=== PATIENT | male | born 1990 | race Two or more races ===

== ENCOUNTER 2024-03-24 02:18 | Emergency (ER) | payer SELFPAY ==
--- NOTE | ~2024-03-24 | CT_ITS ---
CLINICAL HISTORY: LLQ abdo pain, Hx of sigmoidectomy CT abdomen and pelvis with contrast Comparison: CT - CT ABDOMEN PELVIS W IV CON - 03/24/24 05:08 EST Findings: No consolidation or effusion. The gallbladder and solid organs are within normal limits. No renal stones. There are postoperative changes related to the sigmoid colon which is moderately distended with gas. Liquid stool is seen within the colon suggesting diarrhea. The prostate is enlarged. Small amount of radiodense material is seen within the urinary bladder. Findings may represent blood products. The bladder is otherwise unremarkable. The bones are intact. IMPRESSION: 1. Small amount of radiodense material is seen within the urinary bladder likely representing a small amount of excreted contrast. Blood products not excluded. Please correlate clinically. 2. Postoperative changes sigmoid. The sigmoid is moderately distended. 3. Liquid stool suggests diarrhea. This document has been electronically signed by: Srikanth Mendes MD on 03/24/2024 06:54:23
[2024-03-24 02:22] VITALS: BP 118/77; PULSE 80; RESP 16; TEMP 36.8; O2SAT 96; BMI 35.4
--- NOTE | 2024-03-24 02:57 | MHC.EDTECH ---
Patient brought into triage area,labs and urine obtained and sent to lab
[2024-03-24 03:03] LABS: MANUAL DIFF FLAG NO
[2024-03-24 03:04] LABS: Basophils Percent Auto 0.5 % (0-2); Eosinophils Absolute Auto 0.1 X10*3/uL (0.0-0.4); Eosinophils Percent Auto 1.5 % (0-4); Hematocrit 42.8 % (42.0-52.0); Hemoglobin 14.2 g/dl (14.0-18.0); Imm Gran Abs Auto 0.03 X10*3/uL (0.00-0.03); Imm Gran Pct Auto 0.4 % (0.0-0.4); Lymphocytes Absolute Auto 2.8 X10*3/uL (1.2-4.9); Lymphocytes Percent Auto 35.3 % (20-40); Mean Corpuscular HGB Conc 33.2 g/dl (31.0-36.0); Mean Corpuscular Hemoglobin 24.2 pg (27.0-33.0); Mean Platelet Volume 9.7 fL (9.4-12.4); Monocytes Absolute Auto 0.6 X10*3/uL (0.1-1.2); Monocytes Percent Auto 7.3 % (2-11); Neutrophils Absolute Auto 4.4 x10*3/uL (2.0-8.3); Platelet Count 300 X10*3/uL (160-400); Red Blood Count 5.86 X10*6/uL (4.60-5.80); White Blood Count 7.9 X10*3/uL (4.8-10.8)
[2024-03-24 03:08] LABS: Appearance Urine Clear; Color Urine Yellow; Glucose Urine UA Negative (Negative); Leukocyte Esterase Urine Small (1+) (Negative); Nitrite Urine Negative (Negative); PH 5.5 (5.0-9.0); Specific Gravity - Urine >= 1.030 (1.005-1.025); UMIC TRIGGER UACC YES; Urine Blood Negative (Negative); Urine Ketones Negative (Negative); Urine Protein Negative (Neg-Trace)
[2024-03-24 03:16] LABS: Anion Gap 14 (12-20); Blood Urea Nitrogen 17 mg/dL (9-16); Calcium 8.7 mg/dL (8.4-10.2); Carbon Dioxide 19 mmol/L (22-29); Chloride 108 mmol/L (96-108); Creatinine Clr Calc Pharmacy 161.9; Estimated Glomerular Filt Rate > 60; Glucose Random 97 mg/dL (60-115); Potassium 3.8 mmol/L (3.3-5.1); Sodium 137 mmol/L (135-145)
[2024-03-24 03:37] LABS: Alanine Aminotransferase 16 U/L (0-40); Aspartate Amino Transferase 20 U/L (5-37); Bilirubin Direct 0.1 mg/dL (0.0-0.5); Bilirubin Total 0.4 mg/dL (0.0-1.0); Lipase 22 U/L (8-78); Total Protein 7.5 g/dL (6.5-8.0)
[2024-03-24 03:45] LABS: Bacteria Urine None Seen (None Seen); Hyaline Casts Urine 0-2 /LPF (0-2); RBC Urine 0-2 /HPF (0-2); Squamous Epithelial Cell Urine 0-2 /HPF (0-2); UACC Culture Trigger YES; WBC Urine 0-5 /HPF (0-5)
[2024-03-24 04:05] LABS: Alkaline Phosphatase 51 U/L (39-117)
--- NOTE | 2024-03-24 04:29 | ED_ITS ---
HPI - General Adult General Chief complaint: Abdominal Pain Stated complaint: Stomach Pain Time Seen by Provider: 03/24/24 04:29 History of Present Illness ED Provider: Parvez ESPINOZA narrative: The patient is a 34-year-old male who presents to the emergency room with a 1 day history of abdominal pain. He has had associated nausea but no vomiting. He has had associated diarrhea. He has also has a headache. He feels the pain primarily in the left lower quadrant. 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 He had a large section of sigmoid colon removed. Related Data Allergies Allergy/AdvReac Type Severity Reaction Status Date / Time amoxicillin [AMOXICILLIN] Allergy Intermediate STOMACH Unverified 03/24/24 02:24 UPSET Review of Systems 2 Review of Systems: Yes all other systems are reviewed and are negative Physical Exam ED Vital Signs: Vital Signs - 24 hr 03/24/24 02:22 03/24/24 05:03 03/24/24 08:42 Temperature 98.2 F 98.4 F 98.6 F Pulse Rate 80 68 62 Respiratory Rate 16 14 15 Blood Pressure 118/77 124/85 113/54 L Pulse Oximetry 96 99 100 Oxygen Delivery Method Room Air Room Air Room Air BMI result Body Mass Index 35.4 Const Other: The patient was awake and alert. He looked uncomfortable. HENMT Other: Face is symmetrical, mucous membranes moist Eyes General: appearance normal, both eyes and all related structures Neck Neck: Yes full ROM Resp Effort & Inspection: normal respiratory effort Auscultation: clear to auscultation bilaterally Cardio Rate: regular rate Rhythm: regular rhythm Heart sounds: S1 normal heart sound present and S2 normal heart sound present GI Other: The patient was quite tender in the left lower quadrant Skin Other: Skin was dry and unremarkable Neuro Other: The patient was awake and alert with a normal mental status. Moving extremities normally. Extrem General: Yes normal to inspection, Yes full ROM and Yes no pedal edema Medications Administered Discontinued Medications Generic Name Dose Route Start Last Admin Trade Name Freq PRN Reason Stop Dose Admin Diphenhydramine HCl 25 mg 03/24/24 04:55 03/24/24 05:54 Diphenhydramine Hcl 50 Mg/Ml Vial IVPUSH 03/24/24 04:56 25 mg ONCE ONE Administration Sodium Chloride 1,000 mls @ 999 mls/hr 03/24/24 05:00 03/24/24 05:53 Ns IV 03/24/24 06:00 999 mls/hr .Q1H1M REYES Administration Iohexol 85 ml 03/24/24 05:44 03/24/24 05:45 Iohexol 350 Mg/Ml 100 Ml Infus..Btl IV 03/24/24 05:45 85 ml ONCE ONE Administration Ketorolac Tromethamine 15 mg 03/24/24 04:55 03/24/24 05:54 Ketorolac Tromethamine 15 Mg/Ml Vial IVPUSH 03/24/24 04:56 15 mg ONCE ONE Administration Metoclopramide HCl 10 mg 03/24/24 04:55 03/24/24 05:54 Metoclopramide Hcl 10 Mg/2 Ml Vial IVPUSH 03/24/24 04:56 10 mg ONCE ONE Administration Medical Decision Making Medical Decision Making [facility] [place] Narrative: The patient is a 34-year-old male visiting from [place]. He is here for abdominal pain and diarrhea. 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 He says that he has pain in his left lower quadrant similar to the pain he had at that time. Labs today are unremarkable. A CT scan shows liquid stool in the colon consistent with diarrhea. I suspect he has a viral gastroenteritis type syndrome. With regard to his pain in his previous surgery there are postoperative changes in the sigmoid but no obvious acute findings other than moderate distention. The patient was treated symptomatically with ketorolac, metoclopramide, and diphenhydramine as well as IV fluids. He felt better. He was sedated for awhile because of the diphenhydramine. Ultimately he seemed well enough for discharge. Lab Data 03/24/24 02:57 03/24/24 02:57 Labs: Lab Results 03/24/24 Range/Units 02:57 WBC 7.9 (4.8-10.8) X10*3/uL RBC 5.86 H (4.60-5.80) X10*6/uL Hgb 14.2 (14.0-18.0) g/dl Hct 42.8 (42.0-52.0) % MCV 73.0 L (80.0-98.0) fL MCH 24.2 L (27.0-33.0) pg MCHC 33.2 (31.0-36.0) g/dl RDW 15.0 (11.0-16.0) % Plt Count 300 (160-400) X10*3/uL MPV 9.7 (9.4-12.4) fL Immature Gran % (Auto) 0.4 (0.0-0.4) % Neut % (Auto) 55.0 (45-73) % Lymph % (Auto) 35.3 (20-40) % Johnson % (Auto) 7.3 (2-11) % Eos % (Auto) 1.5 (0-4) % Baso % (Auto) 0.5 (0-2) % Lymph # (Auto) 2.8 (1.2-4.9) X10*3/uL Johnson # (Auto) 0.6 (0.1-1.2) X10*3/uL Eos # (Auto) 0.1 (0.0-0.4) X10*3/uL Baso # (Auto) 0.0 (0.0-0.2) X10*3/uL Abs Immat Gran (auto) 0.03 (0.00-0.03) X10*3/uL Absolute Neuts (auto) 4.4 (2.0-8.3) x10*3/uL Absolute Nucleated RBC 0.000 (0.0-0.012) X10*3/uL Nucleated RBC % (auto) 0.0 (0.0-0.2) /100WBC Sodium 137 (135-145) mmol/L Potassium 3.8 (3.3-5.1) mmol/L Chloride 108 (96-108) mmol/L Carbon Dioxide 19 L (22-29) mmol/L Anion Gap 14 (12-20) BUN 17 H (9-16) mg/dL Creatinine 0.79 (0.5-1.4) mg/dL Estim Creat Clear Calc 161.9 Estimated GFR > 60 Random Glucose 97 (60-115) mg/dL Calcium 8.7 (8.4-10.2) mg/dL Total Bilirubin 0.4 (0.0-1.0) mg/dL Direct Bilirubin 0.1 (0.0-0.5) mg/dL AST 20 (5-37) U/L ALT 16 (0-40) U/L Alkaline Phosphatase 51 (39-117) U/L C-Reactive Protein 0.19 (< or = 0.50) mg/dL Total Protein 7.5 (6.5-8.0) g/dL Albumin 4.0 (3.5-5.0) g/dL Lipase 22 (8-78) U/L Urine Color Yellow Urine Appearance Clear Urine pH 5.5 (5.0-9.0) Ur Specific [place] >= 1.030 H (1.005-1.025) Urine Protein Negative (Neg-Trace) mg/dL Urine Glucose (UA) Negative (Negative) mg/dL Urine Ketones Negative (Negative) mg/dL Urine Blood Negative (Negative) Urine Nitrite Negative (Negative) Ur Leukocyte Esterase Small (1+) H (Negative) Urine RBC 0-2 (0-2) /HPF Urine WBC 0-5 (0-5) /HPF Ur Squamous Epith Cells 0-2 (0-2) /HPF Urine Bacteria None Seen (None Seen) Hyaline Casts 0-2 (0-2) /LPF Discharge Plan Discharge Clinical Impression: Abdominal pain, Diarrhea Patient Disposition: Home, Self-Care Instructions: Acute Diarrhea (ED) Additional Instructions: Your blood testing and CT scan today did not show any surgical process. The CT scan indicates that you have a lot of liquid stool. I think you probably have a viral illness causing diarrhea. It may be that because of your previous surgery you are more susceptible to having pain when you have a diarrheal illness. Please rest and take it easy today. Drink clear fluids. Try the BRAT diet: Bananas, rice, applesauce, and toast. These foods are good to help reduce diarrhea. You may use ibuprofen and acetaminophen as needed for pain. Please plan on following up with your regular doctor when you get back home going concerns. If you get worse before you return home return to the emergency room for another evaluation here. Interventions: ED Discharge Assessment Last Done: 03/24/24 10:22 Discharge Date/Time: 03/24/24 10:24 Print Language: Croatian
[2024-03-24 05:03] VITALS: BP 124/85; PULSE 68; RESP 14; TEMP 36.9; O2SAT 99
[2024-03-24 05:06] LABS: C Reactive Protein 0.19 mg/dL (< or = 0.50)
[2024-03-24] MEDS: iohexoL 350 MG/ML 100 ML INFUS..BTL 85 ML IV (05:45)
[2024-03-24] MEDS: 0.9 % Sodium Chloride 1,000 ML 999 ML IV (05:53)
[2024-03-24] MEDS: Metoclopramide HCl 10 MG/2 ML VIAL IVPUSH (05:54)
[2024-03-24] MEDS: Ketorolac Tromethamine 15 MG/ML VIAL IVPUSH (05:54)
[2024-03-24] MEDS: diphenhydrAMINE HCL 50 MG/ML VIAL 25 MG IVPUSH (05:54)
[2024-03-24 08:42] VITALS: BP 113/54; PULSE 62; RESP 15; TEMP 37; O2SAT 100
[2024-03-24 10:22] VITALS: BP 113/54; PULSE 62; RESP 15; TEMP 37; O2SAT 100
== END 2024-03-24 10:24 | disposition home or self-care (01) ==
PROVIDERS: Emergency Provider Emergency Medicine
DX: R10.32 Left lower quadrant pain (principal); R19.7 Diarrhea, unspecified; R51.9 Headache, unspecified
CPT/HCPCS: 36415; 74177; 80048; 80076; 81001; 83690; 85025; 86140; 87086; 96374; 96375; 99284; 99285; J1200; J1885; J2765; Q9967

== ENCOUNTER → 2024-03-24 04:53 | Outpatient (BNV) | payer SELFPAY | PROVIDERS: Emergency Provider Emergency Medicine; Visit Provider Radiology Diagnostic Radiology | DX: K63.89 Other specified diseases of intestine (principal); R93.41 Abnormal radiologic findings on diagnostic imaging of renal pelvis, ureter, or bladder | CPT/HCPCS: 74177 ==